=== PATIENT | female | born 1980 | race Caucasian/White ===

== ENCOUNTER 2018-09-26 18:42 | Emergency (ER) | payer BC, OTHER ==
[~2018-09-26] VITALS: Ht 154.9 cm; Wt 94.3 kg
[2018-09-26] MEDS ORDERED: THYR60TA2 PO (18:52)
[2018-09-26] MEDS ORDERED: INSU100V28 (18:52)
--- NOTE | 2018-09-26 19:07 | NUR ---
ASSUMED CARE OF PATIENT. NO ACUTE DISTRESS NOTED. VSS.
--- NOTE | 2018-09-26 19:07 | NUR ---
XRAY AT BEDSIDE
--- NOTE | 2018-09-26 19:35 | NUR ---
Shoulder Sling applied to RUE. CMS WNL.
[2018-09-26 19:41] VITALS: BP 121/78
--- NOTE | 2018-09-26 19:41 | NUR ---
Patient discharged to home in stable conditon. Written and verbal after care instructions given. Patient verbalizes understanding of instructions. Ambulated from ER with stable gait. All belongings with patient. VSS
== END 2018-09-26 19:44 | disposition home or self-care (01) ==
LOC: ER 18:42
DX: M79.621 Pain in right upper arm (principal); E10.9 Type 1 diabetes mellitus without complications; Z88.0 Allergy status to penicillin; Z79.4 Long term (current) use of insulin; Z79.899 Other long term (current) drug therapy; X50.0XXA Overexertion from strenuous movement or load, initial encounter; Y93.89 Activity, other specified; Y92.89 Other specified places as the place of occurrence of the external cause; Y99.8 Other external cause status
CPT/HCPCS: 73080; A4663